=== PATIENT | male | born 1960 | race Caucasian/White ===

== ENCOUNTER 2019-09-25 06:34 | Outpatient (CLI) | payer BC ==
[2019-09-25 11:02] LABS: #Basophils 0.1 thou/uL (0.0-0.2); #Eosinphils 0.3 thou/uL (0.0-0.7); #Lymphocytes 1.4 thou/uL (1.20-3.40); #Monocytes 0.4 thou/uL (0.11-0.59); #Neutrophils 2.4 thou/uL (1.40-6.50); %Basophils 1.1 % (0.0-1.0); %Eosinophils 5.5 % (0.0-10.0); %Monocytes 8.9 % (0.0-10.0); %Neutrophils 52.5 % (42.0-75.0); Hemoglobin 14.8 g/dL (14.0-18.0); Mean Corpuscular HGB CONC 35.6 g/dL (32.0-36.0); Mean Corpuscular Volume 95.6 fL (78.0-98.0); Platelet Count 236 thou/uL (130-400); RBC Distribution Width 11.2 % (11.5-14.5); Red Blood Cell (RBC) Count 4.36 mill/uL (4.70-6.10); White Blood Cell (WBC) Count 4.5 thou/uL (4.8-10.8)
[2019-09-25 11:25] LABS: Anion Gap 11 mmol/L (10-20); BUN (Urea Nitrogen) 13 mg/dL (8.4-25.7); Calc. Creatinine Clearance 0 mL/min (70-130); Calcium 9.4 mg/dL (7.8-10.44); Carbon Dioxide 29 mmol/L (22-29); Chloride 104 mmol/L (98-107); Estimated GFR-MDRD 56; Glucose 85 mg/dL (70-105); Prothrombin Time 12.9 SEC (12.0-14.7); Sodium 140 mmol/L (136-145)
[2019-09-25 11:29] LABS: Bacteria/HPF None Seen HPF (None Seen); Bilirubin Negative (Negative); Blood, Urine Negative (Negative); Clarity Clear (Clear); Glucose, Urine (Dipstick) Normal (Negative); Leukocyte 25 Leu/uL (Negative); Nitrite Negative (Negative); Protein, Urine (Dipstick) 20 mg/dL (Neg-Trace); RBC/HPF None Seen HPF (0-3); Squamous Epithelial None Seen HPF (0-3)
== END 2019-09-25 06:35 | disposition home or self-care (01) ==
LOC: LABBT 06:34
PROVIDERS: ATTEND Orthopaedic Surgery
DX: Z01.818 Encounter for other preprocedural examination (principal); M17.11 Unilateral primary osteoarthritis, right knee
CPT/HCPCS: 80048; 81001; 85025; 85610; 87081; 93005; 93010

== ENCOUNTER 2019-09-25 09:00 | Inpatient (IN) | payer BC ==
[2019-09-25 09:16] VITALS: BMI 25.0
[2019-10-02] MEDS ORDERED: Ondansetron PF 4 MG/2 ML Vial ONE (11:06)
[2019-10-02] MEDS ORDERED: Bupivacaine HCl 0.5%/Epinephrine 1:200,000/PF 30 ml Vial ONE (11:06)
[2019-10-02] MEDS ORDERED: Lidocaine 1% PF 5 ML VIAL ONE (11:06)
[2019-10-02] MEDS ORDERED: PROPOFOL 200 MG/20 ML VIAL ONE (11:06)
[2019-10-02] MEDS ORDERED: Ropivacaine 0.2% HCl/PF (40 MG/20 ML VIAL) ONE (11:06)
[2019-10-02] MEDS ORDERED: Tranexamic Acid 1,000 MG/10 ML VIAL ONE (11:27)
[2019-10-02] MEDS ORDERED: Vancomycin 1.5 GRAM/300 ML BAG 1.5 GM/300 ML BAG ONE (11:27)
[2019-10-02] MEDS ORDERED: Sodium Chloride 0.9% 100 ML ONE (11:27)
[2019-10-02] MEDS ORDERED: Fentanyl 100 MCG/2 ML VIAL ONE ×4 (11:55→16:10)
[2019-10-02] MEDS ORDERED: Midazolam HCl 2 mg/2 ml Vial ONE (11:55)
[2019-10-02] MEDS ORDERED: Promethazine HCl 25 MG/ML VIAL IM PRN ×4 (12:59→14:10)
[2019-10-02] MEDS ORDERED: Ropivacaine HCl/PF 250 ML in Premix Bag 1 BAG NERVE BLCK SCH (12:59)
[2019-10-02] MEDS ORDERED: traMADol HCl 50 MG TAB PO PRN ×3 (12:59)
[2019-10-02] MEDS ORDERED: Morphine 4 MG/ML VIAL SLOW IVP PRN (12:59)
[2019-10-02] MEDS ORDERED: diphenhydrAMINE 25 MG CAP PO PRN (12:59)
[2019-10-02] MEDS ORDERED: Ondansetron PF 4 MG/2 ML Vial IVP PRN (12:59)
[2019-10-02] MEDS ORDERED: HYDROcodone/Acetaminophen 10/325 mg Tablet PO PRN ×3 (12:59)
[2019-10-02] MEDS ORDERED: Acetaminophen 325 MG TAB PO PRN ×2 (12:59)
[2019-10-02] MEDS ORDERED: Zolpidem Tartrate 5 MG TAB PO PRN ×2 (12:59)
[2019-10-02] MEDS ORDERED: Fentanyl 100 MCG/2 ML VIAL SLOW IVP PRN (13:00)
[2019-10-02] MEDS ORDERED: Acetaminophen ER (8hr) 650 MG TAB PO PRN (13:00)
[2019-10-02] MEDS ORDERED: Ondansetron HCl/PF 4 MG/2 ML Vial IVP PRN ×2 (13:47→14:10)
[2019-10-02] MEDS ORDERED: Promethazine HCl 25 MG/ML VIAL SLOW IVP PRN ×2 (13:47→14:10)
--- NOTE | 2019-10-02 15:25 | RAD ---
XR Knee Rt 2 View: 10/02/2019 2:00 PM CLINICAL INDICATION: Postop right knee COMPARISON: None. FINDINGS: Bones: No acute fracture is demonstrated. Joints: There is a right total knee prosthesis projects in expected position. There is scattered intr a-articular and periarticular soft tissue gas consistent with the patient's recent postoperative state.. Soft Tissue: No acute abnormality.. IMPRESSION: Postop right knee.
[2019-10-02] MEDS: Ketorolac Tromethamine 30 MG/ML VIAL IVP SCH ×3 (17:27→22:12)
[2019-10-02] MEDS: Ondansetron PF 4 MG/2 ML Vial IVP PRN (17:28)
[2019-10-02] MEDS: Sodium Chloride 0.9% 1,000 ML IV SCH ×2 (17:32→22:15)
[2019-10-02] MEDS: Senokot S 8.6-50 MG TAB PO SCH (20:50)
[2019-10-02] MEDS: Ferrous Gluconate 324 MG TAB PO SCH (20:50)
[2019-10-02] MEDS: Aspirin 81 mg Enteric Coated Tablet PO SCH (20:50)
[2019-10-02] MEDS ORDERED: Calcium Carbonate 500 MG TAB PO PRN (22:56)
[2019-10-02] MEDS ORDERED: Vancomycin HCl 1 GM in Premix Bag 1 BAG IVPB SCH (23:00)
[2019-10-02] MEDS: Calcium Carbonate 500 MG ChewTAB PO PRN (23:05)
[2019-10-03 05:34] LABS: Hemoglobin 11.7 g/dL (14.0-18.0); Mean Corpuscular HGB CONC 35.5 g/dL (32.0-36.0); Mean Corpuscular Hemoglobin 34.4 pg (27.0-31.0); Mean Corpuscular Volume 96.9 fL (78.0-98.0); Mean Platelet Volume 7.8 fL (7.4-10.4); Platelet Count 169 thou/uL (130-400); Red Blood Cell (RBC) Count 3.41 mill/uL (4.70-6.10)
[2019-10-03] MEDS: Ketorolac Tromethamine 30 MG/ML VIAL IVP SCH ×3 (05:41→21:14)
[2019-10-03] MEDS: HYDROcodone/Acetaminophen 10/325 mg Tablet PO PRN ×3 (05:44→14:43)
[2019-10-03] MEDS ORDERED: Calcium Carbonate 500 MG TAB PO SCH (08:00)
[2019-10-03] MEDS ORDERED: Multivit, Therapeutic 1 TAB PO SCH (09:00)
[2019-10-03] MEDS: Ferrous Gluconate 324 MG TAB PO SCH ×2 (09:44→21:13)
[2019-10-03] MEDS: Aspirin 81 mg Enteric Coated Tablet PO SCH ×2 (09:44→21:13)
[2019-10-03] MEDS: Senokot S 8.6-50 MG TAB PO SCH ×2 (09:44→21:13)
[2019-10-03] MEDS: Sodium Chloride 0.9% 1,000 ML IV SCH ×3 (09:50→23:55)
[2019-10-03] MEDS: Multivitamin W/ Minerals 1 TAB PO SCH (09:50)
--- NOTE | 2019-10-03 13:41 | OP ---
DATE OF PROCEDURE: 10/02/2019 PREOPERATIVE DIAGNOSIS: Degenerative joint disease, right knee. POSTOPERATIVE DIAGNOSIS: Right knee degenerative joint disease. PROCEDURE PERFORMED: Right total knee arthroplasty using [place] triathlon 6 femur, 6 tibia, 9 mm CS X3 polyethylene and A32 patella. NURSING INSTRUCTOR: Parag Hawkins PA-C BLOOD LOSS: Minimal. SPECIMEN: None. DRAIN: None. COMPLICATION: None. TOURNIQUET TIME: 52 minutes. PROCEDURE IN DETAIL: After informed consent was obtained in the preoperative holding area, the patient was taken to the operative suite where general anesthesia was induced. Once adequate level of general anesthesia was obtained, the patient was positioned and a well-padded tourniquet was placed around the right proximal thigh. The right lower extremity was then prepped and draped in the usual sterile fashion. Prior to exsanguination, a time-out was called and all members of the surgical team agreed upon site, surgeon, and patient. The extremity was then exsanguinated and the tourniquet was raised. A midline longitudinal incision was then made directly over the patella extending 2 fingerbreadths above the superior pole of the patella and 2 fingerbreadths inferior to the inferior patellar pole of the patella. Deeper subcutaneous layers were dissected sharply and local bleeding was controlled with Bovie electrocautery. A quad tendon longitudinal split was then made sharply and a median parapatellar arthrotomy was carried out both sharp and with Bovie electrocautery, carried down to 1 fingerbreadth medial to the tibial tubercle. The knee was then placed into flexion and the patella was everted nicely, and a copious fat pad ectomy was performed allowing for greater exposure of the tibia. The computer-assisted distal femoral fiducial was then placed and pinned firmly, and the distal femoral cutting guide was pinned firmly into place. The oscillating saw was then used to remove the appropriate amount of bone. The 4-in-1 cutting block was then placed on the distal femur and the oscillating saw was used to remove the appropriate amount of bone off the anterior, posterior, and chamfer cuts. After completion of bone cuts, the anterior cruciate ligament was resected sharply and the posterior cruciate ligament retractor was placed and the tibia was subluxed for better exposure. Partial meniscectomies were carried out, and the tibial computer-assisted fiducial was pinned, and the cutting guide was placed. Oscillating saw was then used to remove the bone, with Hohmann retractors used to take care and protect the collateral ligaments. After the tibial resection was performed, a laminar battery inspector was placed in between the freshened bone cuts. The knee placed at 90 degrees and further bilateral meniscectomies were carried out, and the curved osteotome and curettage were used to remove any excess bone spurs in the posterior compartment. The trial femoral component, tibial baseplate were placed with the appropriate polyethylene trial insert with an appropriate polyethylene spacer and patellar button. The knee was taken through full range of motion with flexion and extension from 0 to 90 degrees and patellar broach squarely in the trochlea without any squinting or subluxation noted. The knee was also stable to varus and valgus stressing at 0, 15, 45, and 90 degrees of flexion. The drawer was negative. All trial components were then removed and the keel punch was used to provide the appropriate defect in the tibia with a mallet. The freshened bone cuts were copiously irrigated with pulsatile lavage of about 1.5 L to remove all excess debris. The freshened bone cuts were then dried with suction and lap sponge. The knee was placed in flexion and retractors were placed to provide access to all bone cuts. Tobramycin-impregnated methyl methacrylate cement was then placed on the freshened bone cuts and implants which were malleted firmly into place. Curettage and Te[place]erry elevators were used to remove any excess bone cement. The knee was placed into full extension and the patellar button was placed under compression, and the cement was allowed to cure. Once completed, the components were again taken through full range of motion and copious irrigation of the knee was carried out with another liter of normal saline. All components were inspected fully with full range of motion and varus and valgus stressing. There was no laxity noted and full extension was observed clinically. Primary closure was accomplished with #2 interrupted Vicryl stitch of the arthrotomy defect. This was oversewn with a #2 running Quill barbed stitch. The gravitational platelet system was then injected into the arthrotomy prior to closure. The subcutaneous layer was then closed with a running 0 barbed Monocryl stitch and skin closure accomplished with a running subcuticular 3-0 Monocryl barbed Quill stitch and augmented with cement on the skin. Tourniquet was lowered. Good spontaneous return of distal pulses was noted clinically and a sterile dressing was applied to the incision. The procedure was terminated without any complications. The patient was awakened in the operative suite, and the patient was taken to the recovery room in stable condition. Job ID: [id number]
[2019-10-03] MEDS: Ondansetron PF 4 MG/2 ML Vial IVP PRN (14:39)
[2019-10-03] MEDS: Calcium Carbonate 500 MG ChewTAB PO PRN ×2 (18:13→21:14)
[2019-10-04] MEDS: HYDROcodone/Acetaminophen 10/325 mg Tablet PO PRN ×2 (00:07→06:21)
[2019-10-04] MEDS: Ketorolac Tromethamine 30 MG/ML VIAL IVP SCH (05:10)
[2019-10-04 05:52] LABS: Hemoglobin 11.6 g/dL (14.0-18.0); Mean Corpuscular HGB CONC 35.1 g/dL (32.0-36.0); Mean Corpuscular Hemoglobin 34.4 pg (27.0-31.0); Mean Corpuscular Volume 98.1 fL (78.0-98.0); Mean Platelet Volume 7.9 fL (7.4-10.4); Platelet Count 173 thou/uL (130-400); RBC Distribution Width 11.1 % (11.5-14.5); Red Blood Cell (RBC) Count 3.37 mill/uL (4.70-6.10)
[2019-10-04] MEDS: Ondansetron PF 4 MG/2 ML Vial IVP PRN ×2 (06:27→13:26)
[2019-10-04] MEDS: Multivitamin W/ Minerals 1 TAB PO SCH (07:42)
[2019-10-04] MEDS: Senokot S 8.6-50 MG TAB PO SCH (07:42)
[2019-10-04] MEDS: Aspirin 81 mg Enteric Coated Tablet PO SCH (07:42)
[2019-10-04] MEDS: Ferrous Gluconate 324 MG TAB PO SCH (07:43)
[2019-10-04 07:50] VITALS: BP 134/85; TEMP 97.7
== END 2019-10-04 14:36 | disposition home or self-care (01) | DRG 470 ==
LOC: SURG A 10-02 09:35 → SJJU 10-02 16:36
PROVIDERS: ADMIT Orthopaedic Surgery; ATTEND Orthopaedic Surgery
PROC: 0SRC0J9 Replacement of Right Knee Joint with Synthetic Substitute, Cemented, Open Approach (ICD-10-PCS; principal; 2019-10-02)
PROC: 8E0YXBZ Computer Assisted Procedure of Lower Extremity (ICD-10-PCS; 2019-10-02)
DX: M17.11 Unilateral primary osteoarthritis, right knee (principal); F17.210 Nicotine dependence, cigarettes, uncomplicated; F32.9 Major depressive disorder, single episode, unspecified; Z96.652 Presence of left artificial knee joint
CPT/HCPCS: 36415; 85027; 86850; 86900; 86901; C1713; C1776; J0670; J0690; J1885; J2001; J2250; J2405; J2704; J2795; J3010; J3370; J3490

== ENCOUNTER 2025-08-26 15:54 | Emergency (ER) | payer BC ==
[~2025-08-26 15:54] MED LIST: Iopamidol-370 76% 500 ML MDV (1 ML CHARGE) ONE
[2025-08-26] MEDS ORDERED: Acetaminophen 500 MG TAB ONE (17:09)
[2025-08-26] MEDS ORDERED: Metoclopramide HCl 10 MG (2 mL) VIAL ONE (17:09)
[2025-08-26] MEDS ORDERED: Dexamethasone 10 MG/ML VIAL ONE (17:09)
[2025-08-26] MEDS ORDERED: Magnesium 2 GM/50 ML BAG (IN WATER) ONE (17:09)
[2025-08-26 17:13] LABS: #Basophils 0.04 10x3/uL (0.0-0.2); #Eosinophils 0.19 10x3/uL (0.0-0.7); #Monocytes 0.58 10x3/uL (0.11-0.59); #Neutrophils 5.02 10x3/uL (1.40-6.50); %Basophils 0.6 % (0.0-1.0); %Eosinophils 2.8 % (0.0-10.0); %Lymphocytes 14.9 % (21.0-51.0); %Monocytes 8.5 % (0.0-10.0); %Neutrophils 73.1 % (42.0-75.0); Hematocrit 39.6 % (42.0-52.0); Hemoglobin 14.1 g/dL (14.0-18.0); Mean Corpuscular Hemoglobin 32.8 pg (27.0-31.0); Mean Corpuscular Volume 92.1 fL (78.0-98.0); Platelet Count 200 10x3/uL (130-400); Red Blood Cell (RBC) Count 4.30 mill/uL (4.70-6.10); White Blood Cell (WBC) Count 6.86 10x3/uL (4.8-10.8)
[2025-08-26 17:28] LABS: CRP, High Sensitivity at Bryan 0.07 mg/dL (< or = 0.5)
[2025-08-26 17:30] LABS: ALT (SGPT) 16 U/L (Less than 45); AST (SGOT) 27 U/L (11-34); Albumin 4.4 g/dL (3.1-4.5); Alkaline Phosphatase 54 U/L (40-110); Anion Gap 14 mmol/L (10-20); BUN (Urea Nitrogen) 17 mg/dL (8.4-25.7); Bilirubin, Total 0.7 mg/dL (0.3-1.2); Calc. Creatinine Clearance 0 mL/min (70-130); Calcium 9.2 mg/dL (7.8-10.44); Carbon Dioxide 25 mmol/L (23-31); Chloride 105 mmol/L (98-107); Globulin 2.5 g/dL (2.4-3.5); Glucose 103 mg/dL (80-115); Potassium 3.8 mmol/L (3.5-5.1); Sodium 140 mmol/L (136-145)
== END 2025-08-26 18:52 | disposition home or self-care (01) ==
LOC: ERS 15:54
DX: R51.9 Headache, unspecified (principal); R29.700 NIHSS score 0
CPT/HCPCS: 70496; 70498; 80053; 84484; 85025; 86141; 93005; 96365; 96367; J1100; J2765; J3475; Q9967